=== PATIENT | female | born 1970 | race Caucasian/White ===

== ENCOUNTER → 2020-08-25 | Outpatient (CLI) | payer SELFPAY ==
[2014-08-04 07:32] VITALS: BMI 26.0
== END | disposition home or self-care (01) ==
LOC: LABSPEC 13:13
PROVIDERS: Visit Provider Obstetrics & Gynecology
DX: Z12.4 Encounter for screening for malignant neoplasm of cervix (principal)
CPT/HCPCS: 88175; G0145